=== PATIENT | female | born 1965 | race Caucasian/White ===

== ENCOUNTER 2019-05-04 12:31 | Outpatient (CLI) | payer OTHER, BC, SELFPAY ==
--- NOTE | 2019-05-06 21:46 | P.PCNSIX_ITS ---
Six Minute Walk DOS: 05/04/2019 REQUESTNG: Benedict Carrizales NP REASON FOR TESTING: shortness of breath SIX MINUTE WALK This test was conducted per ATS guidelines. Initial saturation 96% pulse 82. the patient walked for 6 minutes without stopping completing 1800 ft, 584 m which is excellent for age. There is no desaturation. Pulse ranged from 80- 114. At the end of recovery the pulse was still elevated at 109. IMPRESSION: This study does not show desaturation with exertion, and no supplemental oxygen is needed with exertion. Distance walked is excellent. Roslyn Wan MD
== END 2019-05-04 12:32 | disposition home or self-care (01) ==
LOC: ANHPFT 12:33
PROVIDERS: PCP Family Medicine; Visit Provider Nurse Practitioner Family
DX: R06.02 Shortness of breath (principal)
CPT/HCPCS: 94618

== ENCOUNTER 2019-05-11 15:25 | Outpatient (CLI) | payer OTHER, BC, SELFPAY ==
--- NOTE | 2019-05-17 02:42 | SLEEP_ITS ---
Basic Nocturnal Polysomnogram DATE OF STUDY: 05/11/2019 REASON FOR THIS STUDY: Pulmonary hypertension with RV enlargement, excessive daytime sleepiness. HISTORY: This patient is a 54-year-old woman, 68 inches tall, weighing 230 pounds with a body mass index of 35. She was referred to me by Dr. Carey due to snoring, excessive daytime sleepiness, and pulmonary hypertension with RV enlargement and hypokinesis. She has chronic fatigue. A prior home sleep test on 11/23/2016 was negative, but she did not sleep during that test. She had another negative sleep test in 2019. She is told by others that she snores, does not feel refreshed upon awakening, goes to bed at 10 p.m., takes 10 to 20 minutes to fall asleep and wakes at 5 in the morning before the alarm goes off. She wakes up 10 times per night, gets 5 to 7 hours of sleep at night. Weekend schedule is the same. She may sleep a little longer till 7 a.m. on weekends. She has multiple episodes of nocturia each night. She is tired during the day. This makes it difficult to concentrate. She has had increased mood irritability over the last few years. She takes low-dose melatonin 30 minutes before bed. She does not dream often. She does not wake with a dry mouth. She avoids caffeine later in the day. She has 8 ounces of soda in the morning. She does not have crawly or achy feelings in her legs, but she does move excessively at night due to joint discomfort in the hips. She has vivid dreams upon falling asleep on occasion. There is no muscle weakness with strong emotion. She never feels rested and is always tired. Her tells her that she sounds like she is on a respirator. She does have acid reflux. She has concentration difficulties. She wakes up throughout the night, early in the morning, and has a difficult time when she does awaken. She constantly has trouble sleeping with a cold, occasionally gasps for breath at night, occasionally sweats excessively at night, rarely has pounding or beating of her heart irregularly at night. She constantly falls asleep during the day, but never while driving and never involuntarily. 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 She occasionally has nightmares. She rarely feels sad or depressed, but frequently has anxiety. She only occasionally has muscular tension. She does not have morning jaw pain, rarely grinds her teeth at night. She is constantly awakened by pain at night. She does not awaken with sore achy muscles. MEDICAL COMORBIDITIES: Pulmonary hypertension, hyperlipidemia, hypertension. MEDICATIONS: 1. Aspirin 81 mg a day. 2. Simvastatin 20 mg a day. 3. Spironolactone 100 mg a day. HABITS: Never smoked tobacco. Caffeine, 2 beverages a day. No alcohol. DESCRIPTION OF THE STUDY: On the [place] Sleepiness Scale, her score is 9. This was conducted as a full night basic nocturnal polysomnogram using the [employer] multiple channel system including EOG, EEG, submental EMG, EKG, nasal and oral airflow using thermistors and nasal pressure sensors, chest and abdominal belts, body position data and pulse oximetry. The study was scored using [facility] guidelines. Duration of the study was 452.6 minutes. Sleep time was 417.7 minutes. Sleep efficiency was 92.3%. Sleep latency was 11.4 minutes. REM latency was slightly prolonged at 123.5 minutes. There were 21 awakenings and the patient spent 5.3% of the study awake after sleep onset, 23.5 minutes. Sleep architecture showed 8% stage I sleep, 76.2% stage II sleep, no stage III sleep, and 10.4% stage REM. The apnea-hypopnea index was 5.0, all these were obstructive events. She had 5 obstructive hypopneas in supine REM for an index of 50, extremely high. She had 14 obstructive
== END 2019-05-11 15:26 ==
LOC: ANHCSM 06-29 15:25
PROVIDERS: PCP Family Medicine; Visit Provider Internal Medicine Critical Care Medicine
DX: G47.33 Obstructive sleep apnea (adult) (pediatric) (principal)
CPT/HCPCS: 95810

== ENCOUNTER 2020-01-02 02:51 | Outpatient (CLI) | payer OTHER, BC, SELFPAY ==
[2020-01-02 18:24] LABS: SARS-CoV-2 RNA PCR Negative
== END 2020-01-02 02:52 | disposition home or self-care (01) ==
LOC: ANHCOVIDDT 02:51
PROVIDERS: PCP Family Medicine; Visit Provider Internal Medicine Critical Care Medicine
DX: Z20.828 Contact with and (suspected) exposure to other viral communicable diseases (principal)
CPT/HCPCS: 87635; C9803; U0003

== ENCOUNTER 2020-01-04 05:46 | Outpatient (CLI) | payer OTHER, BC, SELFPAY ==
--- NOTE | 2020-02-02 10:02 | WPDSLEEPSTUD ---
Sleep Study Date of Study: 01/04/20 Ordering Provider: Roslyn Wan MD Interpreting Physician: Roslyn Wan MD Sleep Study Type: CPAP Titration Height: 1.73 m Weight: 104.326 kg Body Mass Index: 34.9 Neck Circumference: 50.8 cm [place]: 5 Reason for Sleep Study A basic nocturnal polysomnogram 05/11/2019 showing mild obstructive sleep apnea with an AHI of 5, which was extremely severe in supine REM with an AHI of 50 Medical diagnoses include hypertension and pulmonary hypertension Sleep History Annemarie Fontenot is a 54 yo female with excessive daytime sleepiness and pulmonary hypertension with RV enlargement and hypokinesis. She has chronic fatigue. She is told by others that she snores, does not feel refreshed upon awakening, goes to bed at 10 p.m., takes 10 to 20 minutes to fall asleep and wakes at 5 in the morning before the alarm goes off. She wakes up 10 times per night, gets 5 to 7 hours of sleep at night. Weekend schedule is the same. She may sleep a little longer till 7 a.m. on weekends. She has multiple episodes of nocturia each night. She is tired during the day. This makes it difficult to concentrate. She has had increased mood irritability over the last few years. She takes low-dose melatonin 30 minutes before bed. She does not dream often. She does not wake with a dry mouth. She avoids caffeine later in the day. She has 8 ounces of soda in the morning. She does not have crawly or achy feelings in her legs, but she does move excessively at night due to joint discomfort in the hips. She has vivid dreams upon falling asleep on occasion. There is no muscle weakness with strong emotion. She never feels rested and is always tired. Her tells her that she sounds like she is on a respirator. She does have acid reflux. She has concentration difficulties. She wakes up throughout the night, early in the morning, and has a difficult time when she does awaken. She constantly has trouble sleeping with a cold, occasionally gasps for breath at night, occasionally sweats excessively at night, rarely has pounding or beating of her heart irregularly at night. She constantly falls asleep during the day, but never while driving and never involuntarily. 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 She occasionally has nightmares. She rarely feels sad or depressed, but frequently has anxiety. She only occasionally has muscular tension. She does not have morning jaw pain, rarely grinds her teeth at night. She is constantly awakened by pain at night. She does not awaken with sore achy muscles. HABITS: Never smoked tobacco. Caffeine, 2 beverages a day. No alcohol. [facility] Past Medical History Medical History (Updated 02/02/20 @ 12:46 by Roslyn Wan MD) Essential hypertension Hyperlipidemia Hypertension Pulmonary hypertension Right ventricular enlargement Shortness of breath Surgical History Surgical History Status post Family History Family History Mother Diabetes mellitus Hypertension Skin cancer Father Lung cancer Sibling DESTINEE (obstructive sleep apnea) Grandparent , asthma Asthma Social History Social History Smoking status: Never smoker Substance use: never Gender identity (if verbalized by the patient): Female Spiritual care concerns: No Medications Home Medications Medication Instructions Recorded Confirmed Type aspirin 81 mg tablet,delayed 81 mg PO DAILY 03/05/19 03/06/19 History release simvastatin 20 mg tablet 20 mg PO DAILY 03/05/19 03/06/19 History spironolactone 100 mg tablet 100 mg PO DAILY 03/05/19 03/06/19 History eszopiclone 2 mg tablet 2 mg PO ONCE #2 tablet 03/06/19 03/06/19 Rx albuterol sulfate 90 mcg/actuation 1 inhalation INHALATION Q4
[2020-02-02 12:47] VITALS: BMI 34.9
== END 2020-01-04 05:47 | disposition home or self-care (01) ==
PROVIDERS: PCP Family Medicine; Visit Provider Internal Medicine Critical Care Medicine
DX: G47.33 Obstructive sleep apnea (adult) (pediatric) (principal); I10 Essential (primary) hypertension; I27.20 Pulmonary hypertension, unspecified
CPT/HCPCS: 95811

== ENCOUNTER → 2020-09-16 15:57 | Outpatient (CLI) | payer OTHER, BC, SELFPAY ==
--- NOTE | ~2020-09-16 | XR_ITS ---
XR chest 2V DATE: 09/16/2020 16:28 INDICATION: Abnormal pulmonary function study TECHNIQUE: 2 views COMPARISON: None FINDINGS: Heart size is normal. No hilar or mediastinal enlargement. No pulmonary infiltrate or conso lidation, pleural effusion or pulmonary vascular congestion or pneumothorax. Degenerative spurring of the thoracic spine. IMPRESSION: No active cardiopulmonary disease Reviewed, dictated and finalized at location A.
== END ==
PROVIDERS: PCP Family Medicine; Visit Provider Internal Medicine Critical Care Medicine
DX: R94.2 Abnormal results of pulmonary function studies (principal)
CPT/HCPCS: 71046

== ENCOUNTER → 2020-10-08 16:01 | Outpatient (CLI) | payer OTHER, BC, SELFPAY ==
--- NOTE | ~2020-10-08 | MM_ITS ---
EXAMINATION: MM screening [facility] BI w jennifer HISTORY: Screening mammogram TECHNIQUE: Craniocaudal and mediolateral oblique 3-D tomosynthesis images were obtained and synthetic 2-D images were generated. CAD analysis was submitted and interpreted. COMPARISON: 06/13/2017, 05/28/2017, 10/18/2015 BREAST PARENCHYMAL COMPOSITION: There are scattered areas of fibroglandular density. FINDINGS: There is no evidence of suspicious mass, calcification, or architectural distortion to sugg est malignancy in either breast. There has been no suspicious interval change. IMPRESSION: 1. No mammographic evidence of malignancy. 2. Recommend routine screening mammography in one year. BI-RADS Category 1: Negative Reviewed, dictated and finalized at location A.
== END ==
PROVIDERS: PCP Family Medicine; Visit Provider Obstetrics & Gynecology
DX: Z12.31 Encounter for screening mammogram for malignant neoplasm of breast (principal)
CPT/HCPCS: 77063; 77067

== ENCOUNTER 2021-06-26 08:03 | Outpatient (CLI) | payer OTHER, BC, SELFPAY ==
--- NOTE | 2021-07-06 15:26 | WPDSLEEPSTUD ---
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 Sleep History Annemarie Fontenot is a 56 year old female with obstructive sleep apnea and prior studies indicating an optimal pressure of 7 cm water pressure. She has pulmonary hypertension, RV hypokinesis with RV enlargement, hypertension and heart disease as well as and shortness of breath. Her 7 cm was changed to APAP 5-10 cm, no improvement in symptoms with good compliance and an AHI is 1.7. She still snores, has some dreams, nocturia on occasion, but can tell not difference since starting use. She is returning for repeat CPAP titration. There is a family history of sleep difficulties with 2 of her brothers using CPAP. She occasionally awakens from sleep feeling short of breath. She rarely awakens at night with heartburn, belching or coughing. She frequently snores and frequently this is loud enough that others complain about it. She constantly has trouble sleeping with a cold. She frequently wakes up gasping for breath at night. She occasionally has breathing problems at night observed by others. She does not sweat excessively at night. She rarely notices her heart pounding or beating irregularly at night. She does not fall asleep during the day, does not fall asleep involuntarily or while driving. She does not have loss of muscle tone with strong emotion. She occasionally has daytime difficulties due to excessive sleepiness. She does not feel paralyzed on waking or falling asleep. She occasionally has vivid dreamlike scenes upon awakening or falling asleep. She does not feel afraid to go to sleep. She does not have nightmares. She occasionally remembers her dreams. She occasionally has racing thoughts. She does not feel sad, depressed or anxious. She denies having muscular tension. She does not notice parts of her body jerking. She does not kick at night. She does not have crawling and aching feelings in her legs. She denies any kind of leg pain at night. She does not have morning jaw pain. She frequently grinds her teeth during sleep. She is not bothered by pain during the day. She constantly is awakened by pain during the night. She frequently wakes up feeling stiff in the morning with sore achy muscles and pain in the neck and spine. She has gained 15 lb in the last year. Normal bedtime is 10:30 p.m. falling asleep within 30 minutes waking several times during the night, on average 8-10 times to urinate, and the first episode occurs soon after falling asleep. 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 She wakes for the day at 5:45 a.m.. She takes naps in the afternoon or evening. A short nap may be refreshing. She is drowsy in the morning for 2 hours or longer. She always has daytime sleepiness and poor difficulties with memory and concentration. Habits: Never smoker. She drinks caffeine daily. She drinks alcohol on occasion. No recreational drugs. [facility] Past Medical History Medical History (Updated 07/06/21 @ 15:30 by Roslyn Wan MD) Essential hypertension Hyperlipidemia Hypertension DESTINEE (obstructive sleep apnea) (~05/2019) Pulmonary hypertension Right ventricular enlargement Shortness of breath Surgical History Surgical History Status post Family Histo
[2021-07-06 15:27] VITALS: BMI 36.5
== END 2021-06-27 06:41 | disposition home or self-care (01) ==
LOC: ANHCSM 08:04
PROVIDERS: PCP Family Medicine; Visit Provider Internal Medicine Critical Care Medicine
DX: G47.33 Obstructive sleep apnea (adult) (pediatric) (principal)
CPT/HCPCS: 95811

== ENCOUNTER 2022-01-07 15:30 | Outpatient (RCR) | payer OTHER, BC, SELFPAY ==
--- NOTE | 2021-11-30 16:55 | PTOPEVAL1 ---
Evaluation Information Assessment Status Evaluation Diagnosis low back pain Subjective Information Pt reports low back pain, sometimes more on the R. Per pt, she has multiple bulging discs but is unsure which level. She also reports hip pain but she states her provider things this is from her low back. She states her hips are sore to lay on. She states when walking she will get a pain in her hip that limit her from walking very far. Pt reports walking less than 100ft with start to hurt her hips. She reports being able to sleep no more than 1 hour before she has to readjust d/t her back or hip pain. Reported Pain Level Pain Score 0,6: Self Report Assessment PT Clinical Summary Annemarie is a 56 y/o female who presents to therapy today for her initial evaluation with a diagnosis of back pain. Today she is unable to describe what makes her pain better or worse, or is unable to give any pain descriptors. She has postural asymmetries and well a generalized muscle tightness . She is tender to palpation at her rashad ASIS, sacral border, and rashad paraspinals. Skilled physial therapy services are indicated to address the deficits noted above, to manage pain, to improve movement mechanics, and to promote unlimited functional mobility. Plan of Care Interventions Electrical Stimulation,Hot Pack/Cold Pack,Manual Therapy,Neuro Re-education,Patient/Caregiver Educati,Therapeutic Activities,Therapeutic Exercise PT Services Indicated Yes Treatment Frequency and 2x/wk for 4 wks or until goals are met Duration These treatments will address the objective and functional deficits as defined above. The patient will be advanced safely and appropriately in order for the patient to progress towards his/her prior level of function. Additional exercises will be introduced and as well as a comprehensive home exercise program upon discharge, if needed, ?to ensure carryover of functional gains achieved in the clinic. This treatment plan has been reviewed and agreement upon by the patient.
--- NOTE | 2022-01-07 16:13 | PTOPDC ---
Assessment and note entered by Rubens Weinberg, PT, DPT Evaluation Information Assessment Status Discharge Diagnosis low back pain Subjective Information Pt states things are going good, and getting a lot better. She states she went on a 1/2 mile walk yesterday and while she felt pain in the hip, it was not enough to stop her. Reported Pain Level Pain Score 0,0: Self Report Assessment PT Clinical Summary Annemarie presents to therapy today for her progress report following 8 visits of skilled therapy to address her rashad hip and low back pain. Today she reports 75% improvement in overall symptoms. She demonstrates no deviations with gait or stair ambulation. She has less tenderness to palpation, improved mobility, and improving strength. She reports good compliance with her HEP and has progress towards her therapy goals. She would like to be discharged from skilled therapy and continue her with HEP and walking program at home. She will be discharged at this time. Plan of Care PT Services Indicated No Treatment Frequency and to be discharged Duration
== END 2022-01-20 09:04 | disposition home or self-care (01) ==
LOC: ANHGOSHPT 15:30
PROVIDERS: PCP Family Medicine; Visit Provider Internal Medicine Rheumatology
DX: M54.50 Low back pain, unspecified (principal); M79.7 Fibromyalgia
CPT/HCPCS: 97110; 97112; 97140; 97161; 97530

== ENCOUNTER 2024-02-14 14:21 | Outpatient (CLI) | payer OTHER, BC, SELFPAY ==
--- NOTE | ~2024-02-14 | MM_ITS ---
EXAMINATION: MM screening [facility] BI w jennifer HISTORY: Screening mammogram TECHNIQUE: Craniocaudal and mediolateral oblique 3-D tomosynthesis images were obtained and synthetic 2-D images were generated. CAD analysis was submitted and interpreted. COMPARISON: 10/08/2020, 05/28/2017 BREAST PARENCHYMAL COMPOSITION:Not Dense. There are scattered areas of fibroglandular density. FINDINGS: There is a focal asymmetry the posterior, outer right breast. Stable parenchymal appearance of the left breast. Bilateral benign calcifications are present. No suspicious microcalcification. IMPRESSION: Posterior, outer right breast asymmetry. This may represent summation artifact, but spot compression views and possibly ultrasound are recommended for further evaluation at this time. BI-RADS Category 0: Incomplete: Needs additional imaging evaluation. Reviewed, dictated and finalized at [facility]. UP MAKER IMPRESSION: Posterior, outer right breast asymmetry. This may represent summation artifact , but spot compression views and possibly ultrasound are recommended for furthe r evaluation at this time. BI-RADS Category 0: Incomplete: Needs additional imaging evaluation.
== END 2024-02-14 14:22 | disposition home or self-care (01) ==
PROVIDERS: PCP Physician Assistant; Visit Provider Physician Assistant
DX: Z12.31 Encounter for screening mammogram for malignant neoplasm of breast (principal); R92.8 Other abnormal and inconclusive findings on diagnostic imaging of breast
CPT/HCPCS: 77063; 77067

== ENCOUNTER 2024-03-14 07:42 | Outpatient (CLI) | payer OTHER, BC, SELFPAY ==
--- NOTE | ~2024-03-14 | MMUS_ITS ---
EXAMINATION: US breast RT limited, MM diagnostic [facility] RT w jennifer HISTORY: Follow-up right breast asymmetry TECHNIQUE: Additional 3-D tomosynthesis images of the right breast were performed and synthetic 2-D i mages were generated. CAD analysis was submitted and interpreted. High resolution Limited right breas t ultrasound was performed. COMPARISON: Comparison to multiple prior studies sequentially, with oldest reviewed study dated 05/28. BREAST PARENCHYMAL COMPOSITION: Not dense: There are scattered areas of fibroglandular density. FINDINGS: MAMMOGRAPHIC FINDINGS: There is a persistent focal asymmetry in the mid lateral aspect of the right breast, posterior third. There are no suspicious calcifications. ULTRASOUND: Limited right breast ultrasound: At 9:00, 7 cm from the nipple there is an irregular shaped hypoechoi c mass with internal vascularity and mixed posterior attenuation measuring 6 x 6 x 5 mm corresponding to the area of mammographic concern. IMPRESSION: 1. Abnormal irregular shaped 6 mm right breast mass at 9:00, 7 cm from the nipple. 2. Ultrasound-guided right breast biopsy recommended. BI-RADS category 4, suspicious findings. Reviewed, dictated and finalized at location [] ET PLATEMAKER IMPRESSION: 1. Abnormal irregular shaped 6 mm right breast mass at 9:00, 7 cm from the nipp le. 2. Ultrasound-guided right breast biopsy recommended. BI-RADS category 4, suspicious findings.
== END 2024-03-14 07:43 | disposition home or self-care (01) ==
PROVIDERS: PCP Physician Assistant; Visit Provider Physician Assistant
DX: R92.8 Other abnormal and inconclusive findings on diagnostic imaging of breast (principal)
CPT/HCPCS: 76642; 77061; 77065; G0279